=== PATIENT | female | born 1985 | race African-American/Black ===

== ENCOUNTER 2018-12-09 03:25 | Observation (INO) | payer MEDICAID | END 2018-12-09 03:41 | disposition left against medical advice (07) | LOC: 8 EST LDRP 03:25 | PROVIDERS: ADMIT Specialist; ATTEND Specialist | DX: O26.899 Other specified pregnancy related conditions, unspecified trimester (principal); R10.9 Unspecified abdominal pain; Z3A.00 Weeks of gestation of pregnancy not specified | CPT/HCPCS: G0378 ==

== ENCOUNTER 2019-09-07 23:39 | Emergency (ER) | payer MEDICAID ==
[~2019-09-07] VITALS: Ht 170.2 cm; Wt 54.0 kg
[2019-09-08 00:50] VITALS: BP 122/78
[2019-09-08] MEDS ORDERED: SODIUM CHLORIDE 0.9% 1,000 ML IV ONE (01:19)
[2019-09-08] MEDS ORDERED: DIPHENHYDRAMINE 50MG/ML VIAL IV ONE (01:30)
[2019-09-08 01:47] LABS: BASOPHILS % 1.1 % (0.0-2.0); EOSINOPHILS % 7.9 % (0.0-5.0); HEMATOCRIT. 39.7 % (36.0-48.0); HEMOGLOBIN. 13.5 g/dL (12.0-16.0); LYMPHOCYTES % 38.8 % (20.0-50.0); MEAN CORPUSCULAR HEMOGLOBIN 31.5 pg (28.0-32.0); MEAN CORPUSCULAR VOLUME 92.7 fL (81.0-99.0); MEAN PLATELET VOLUME 7.9 fl (7.4-10.4); MONOCYTES % 13.5 % (2.0-8.0); NEUTROPHILS % 38.7 % (40.0-76.0); PLATELET 300 x1000/uL (130-400); RED BLOOD CELL COUNT 4.29 mill/uL (4.2-5.4); RED CELL DISTRIBUTION WIDTH 14.3 % (11.6-14.6)
[2019-09-08 01:47] LABS: CLARITY URINE CLEAR (CLEAR); COLOR URINE YELLOW (YELLOW); KETONES URINE NEGATIVE (NEGATIVE); LEUKOCYTE ESTERASE URINE 1+ (NEGATIVE); NITRITE URINE NEGATIVE (NEGATIVE); OCCULT BLOOD URINE 3+ (NEGATIVE); PROTEIN URINE NEGATIVE (NEGATIVE); SPECIFIC GRAVITY URINE 1.033 (1.005-1.030)
[2019-09-08 01:54] LABS: CHLORIDE 112 mEq/L (98-107)
[2019-09-08] MEDS ORDERED: DIPHENHYDRAMINE 50MG CAPSULE PO ONE (02:00)
[2019-09-08 02:15] LABS: *BARBITURATES SCREEN URINE NEGATIVE (NEGATIVE); *BENZODIAZEPINES SCREEN URINE NEGATIVE (NEGATIVE)
[2019-09-08] MEDS ORDERED: NITROFURANTOIN 100MG M/M CAPSULE PO NR (02:15)
[2019-09-08 02:16] LABS: *COCAINE SCREEN URINE NEGATIVE (NEGATIVE); CANNABINOID URINE SCREEN NEGATIVE (NEGATIVE); METHADONE URINE SCREEN NEGATIVE (NEGATIVE); OPIATES URINE SCREEN NEGATIVE (NEGATIVE); PHENCYCLIDINE URINE SCREEN NEGATIVE (NEGATIVE)
[2019-09-08] MEDS ORDERED: NITROFURANTOIN MACROCRYSTAL 50MG CAPSULE PO NR (02:30)
[2019-09-08 02:35] LABS: *AMPHETAMINES SCREEN URINE PRESUMTIVE POSITIVE (NEGATIVE)
== END 2019-09-08 05:53 | disposition left against medical advice (07) ==
LOC: ER 23:39
DX: L30.9 Dermatitis, unspecified (principal); N39.0 Urinary tract infection, site not specified; J45.909 Unspecified asthma, uncomplicated; F15.10 Other stimulant abuse, uncomplicated
CPT/HCPCS: 36415; 80048; 80305; 81003; 81025; 85025; 93005; 99284; J7030; Q0163; Z7610; J1200

== ENCOUNTER 2021-06-29 16:39 | Emergency (ER) | payer MEDICAID ==
[~2021-06-29] VITALS: Ht 170.2 cm; Wt 65.0 kg
[2021-06-29 16:43] VITALS: BP 103/69
== END 2021-06-29 16:54 | disposition left against medical advice (07) ==
LOC: ER 16:39
DX: Z53.21 Procedure and treatment not carried out due to patient leaving prior to being seen by health care provider (principal)
CPT/HCPCS: 93005